=== PATIENT | female | born 1995 | race Hispanic/Latino ===

== ENCOUNTER 2018-05-11 15:44 | Emergency (ER) | payer BC ==
[2018-05-11] MEDS ORDERED: NA CHLORIDE 0.9% 1,000 ML ONE (16:03)
[2018-05-11] MEDS ORDERED: SUCRALFATE 1 GM TABLET ONE (16:12)
[2018-05-11 16:28] LABS: Absolute Lymphocytes (CBC) 0.5 K/uL (0.7-4.9); Absolute Monocytes 0.4 K/uL (0.1-1.3); Absolute Neutrophil 9.8 K/uL (1.8-8.0); Basophils % 0.2 % (0-1.3); Eosinophils % 0.2 % (0-4.4); Hematocrit 42.2 % (36.0-45.0); Lymphocytes % 4.8 % (15.3-44.8); MCH 30.6 pg (27.0-35.0); MCV 89.1 fL (80-100); MPV 10.5 fL (7.6-11.3); Monocytes % 3.8 % (3.3-12.3); RBC Red Blood Cell Count 4.73 M/uL (3.86-4.86)
[2018-05-11 16:46] LABS: ALT/SGPT 23 U/L (12-78); AST/SGOT 20 U/L (15-37); Alkaline Phosphatase 74 U/L (45-117); BUN Blood Urea Nitrogen 17 mg/dL (7-18); Bicarbonate 26 mmol/L (21-32); Bilirubin Direct 0.1 mg/dL (0-0.2); Bilirubin Total 0.4 mg/dL (0.2-1.0); Glucose Level 105 mg/dL (74-106); Lipase 90 U/L (73-393); Potassium 3.8 mmol/L (3.5-5.1); Protein, Total 8.6 g/dL (6.4-8.2); Sodium Level 138 mmol/L (136-145)
[2018-05-11] MEDS ORDERED: ONDANSETRON 4 MG/2 ML VIAL ONE (16:47)
[2018-05-11 17:28] LABS: Urine White Blood Cell Casts OK
[2018-05-11 17:29] LABS: Blood Morphology Comment NOT SEEN (NOT SEEN); Platelet Estimate ADEQ
--- NOTE | 2018-05-11 18:24 | ER ---
Nurse's Notes [facility] Name: Kathy Ortiz Age: 22 yrs Sex: Female : 1995 Arrival Date: 05/11/2018 Time: 15:47 Bed 16 Private MD: None, None Diagnosis: Vomiting, unspecified;Diarrhea, unspecified;Volume depletion, unspecified Presentation: 05/11 15:50 Presenting complaint: Patient states: nausea since yesterday. Upper abd pain, vomiting, aa5 and diarrhea since this morning. Transition of care: patient was not received from another setting of care. Onset of symptoms was May 11, 2018. Risk Assessment: Do you want to hurt yourself or someone else? Patient reports no desire to harm self or others. Initial Sepsis Screen: Does the patient meet any 2 criteria? No. Patient's initial sepsis screen is negative. Does the patient have a suspected source of infection? No. Patient's initial sepsis screen is negative. Care prior to arrival: None. 15:50 Method Of Arrival: Ambulatory aa5 15:50 Acuity: DEONDRE 3 aa5 Triage Assessment: 15:52 General: Appears in no apparent distress. uncomfortable, Behavior is calm, cooperative, hj appropriate for age. Pain: Complains of pain in abdomen. GI: Reports lower abdominal pain, upper abdominal pain. WINDER HAND: 15:52 LMP 04/13/2018 aa5 Historical: - Allergies: 15:52 No Known Allergies; aa5 - Home Meds: 15:52 albuterol sulfate 90 mcg/actuation Inhl HFAA 2 puffs PRN [Active]; aa5 - PMHx: 15:52 Asthma; aa5 - PSHx: 15:52 Cholecystectomy; aa5 - Immunization history:: Adult Immunizations up to date. - Social history:: Smoking status: Patient/guardian denies using tobacco. - Ebola Screening: : No symptoms or risks identified at this time. Screenin:52 Abuse screen: Denies threats or abuse. Denies injuries from another. Nutritional hj screening: No deficits noted. Tuberculosis screening: No symptoms or risk factors identified. Fall Risk None identified. Assessment: 15:52 GI: Bowel sounds present X 4 quads. Abd is soft. hj 15:52 General: Appears in no apparent distress. uncomfortable, Behavior is calm, cooperative, hj appropriate for age. Pain: Complains of pain in abdomen Pain currently is 6 out of 10 on a pain scale. Neuro: Level of Consciousness is awake, alert, obeys commands, Oriented to person, place, time, situation, Appropriate for age. Cardiovascular: Capillary refill < 3 seconds Patient's skin is warm and dry. Respiratory: Airway is patent Respiratory effort is even, unlabored, Respiratory pattern is regular, symmetrical. : No signs and/or symptoms were reported regarding the genitourinary system. EENT: No signs and/or symptoms were reported regarding the EENT system. Derm: No signs and/or symptoms reported regarding the dermatologic system. Musculoskeletal: No signs and/or symptoms reported regarding the musculoskeletal system. 16:30 Reassessment: Patient and/or family updated on plan of care and expected duration. Pain hj level reassessed. Patient is alert, oriented x 3, equal unlabored respirations, skin warm/dry/pink. awaiting results and POC; family in room;. 17:30 Reassessment: Patient and/or family updated on plan of care and expected duration. Pain hj level reassessed. Patient is alert, oriented x 3, equal unlabored respirations, skin warm/dry/pink. possible D/C;. 18:00 Reassessment: Patient and/or family updated on plan of care and expected duration. Pain hj level reassessed. Patient is alert, oriented x 3, equal unlabored respirations, skin warm/dry/pink. complaints of pain;. 18:36 Reassessment: Patient and/or family updated on plan of care and expected duration. Pain hj level reassessed. Patient is alert, oriented x 3, equal unlabored respirations, skin warm/dry/pink. medicated;. 18:36 Reassessment: for D/C; instructions given;. hj Vital Signs: 15:52 BP 122 / 79; Pulse 122; Resp 18 S; Temp 98.9(TE); Pulse Ox 97% on R/A; Weight 97.07 kg aa5 (R); Height 5 ft. 2 in. (157.48 cm) (R); Pain 7/10; 16:19 BP 128 / 71; Pulse 111; Resp 18; Pulse Ox 100% on R/A; mh5 18:23 BP 125 / 70; Pulse 94; Resp 18; Pulse Ox 97% on R/A; hj 15:52 Body Mass Index 39.14 (97.07 kg, 157.48 cm) aa5 ED Course: 15:47 Patient arrived in ED. mr 15:47 None, None is Private Physician. mr 15:51 Triage completed. aa5 15:52 Arm band placed on. aa5 15:52 Patient has correct armband on for positive identification. Placed in gown. Bed in low hj position. Call light in reach. Side rails up X 1. Adult w/ patient. 15:55 Mikaela Heck FNP-C is [facility]. snw 15:55 Russ Mai MD is Attending Physician. snw 15:57 Stewart Dhillon RN is Primary Nurse. hj 16:18 Initial lab(s) drawn, by me, sent to lab. Inserted saline lock: 22 gauge in left mh5 antecubital area, using aseptic technique. Blood collected. 16:45 Inserted saline lock: 22 gauge in right upper arm, using aseptic technique. hj 17:47 Urine Microscopic Only Sent. hj 18:57 No provider procedures requiring assistance completed. IV discontinued, intact, hj bleeding controlled, No redness/swelling at site. Pressure dressing applied. Administered Medications: 16:02 Drug: NS 0.9% 1000 ml Route: IV; Rate: 1 bolus; Site: left antecubital; hj 17:45 Follow up: IV Status: Completed infusion; IV Intake: 1000ml hj 16:02 Drug: CarafATE 1 grams Route: PO; hj 16:41 Follow up: Response: No adverse reaction hj 16:41 Drug: Zofran 4 mg Route: IVP; Site: right upper arm; hj 16:48 Follow up: Response: No adverse reaction; Nausea is decreased hj 18:23 Drug: TORadol 30 mg Route: IVP; Site: right upper arm; hj 18:28 Follow up: Response: No adverse reaction; Pain is decreased hj Intake: 17:45 IV: 1000ml; Total: 1000ml. hj Outcome: 18:24 Discharge ordered by . snw 18:57 Discharged to home ambulatory, with family. hj 18:57 Condition: stable 18:57 Discharge instructions given to patient, Instructed on discharge instructions, follow up and referral plans. medication usage, Demonstrated understanding of instructions, follow-up care, medications, Prescriptions given X 1. 18:58 Patient left the ED. hj Signatures: Mikaela Heck, AMY-C REELING OPERATOR-Csnw Jovita West mr Regina Lennon, RN RN aa5 Stewart Dhillon, JESICA RN Jovita Lora mh5
--- NOTE | 2018-05-11 18:25 | EDPHYS ---
Physician Documentation [facility] Name: Kathy Ortiz Age: 22 yrs Sex: Female : 1995 Arrival Date: 05/11/2018 Time: 15:47 Bed 16 Private MD: None, None ED Physician Russ Mai HPI: 05/11 16:15 This 22 yrs old Female presents to ER via Ambulatory with complaints of snw Abdominal Pain, Vomiting. 16:15 The patient presents with abdominal pain in the epigastric area, in the upper abdomen. snw Onset: The symptoms/episode began/occurred suddenly, this morning. The symptoms do not radiate. Associated signs and symptoms: Pertinent positives: nausea, vomiting, and diarrhea. The symptoms are described as crampy. Severity of pain: At its worst the pain was moderate. The patient has not experienced similar symptoms in the past. It is unknown whether or not the patient has recently seen a physician. 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 - Social history:: Smoking status: Patient/guardian denies using tobacco. - Ebola Screening: : No symptoms or risks identified at this time. ROS: 16:15 Constitutional: Negative for fever, chills, and weight loss, Eyes: Negative for injury, snw pain, redness, and discharge, ENT: Negative for injury, pain, and discharge, Neck: Negative for injury, pain, and swelling, Cardiovascular: Negative for chest pain, palpitations, and edema, Respiratory: Negative for shortness of breath, cough, wheezing, and pleuritic chest pain, Back: Negative for injury and pain, : Negative for injury, bleeding, discharge, and swelling, MS/Extremity: Negative for injury and deformity, Skin: Negative for injury, rash, and discoloration, Neuro: Negative for headache, weakness, numbness, tingling, and seizure. 16:15 Abdomen/GI: Positive for nausea, vomiting, and diarrhea. Exam: 16:14 Constitutional: This is a well developed, well nourished patient who is awake, alert, snw and in no acute distress. Head/Face: Normocephalic, atraumatic. Eyes: Pupils equal round and reactive to light, extra-ocular motions intact. Lids and lashes normal. Conjunctiva and sclera are non-icteric and not injected. Cornea within normal limits. Periorbital areas with no swelling, redness, or edema. ENT: Nares patent. No nasal discharge, no septal abnormalities noted. Tympanic membranes are normal and external auditory canals are clear. Oropharynx with no redness, swelling, or masses, exudates, or evidence of obstruction, uvula midline. Mucous membranes moist. Neck: Trachea midline, no thyromegaly or masses palpated, and no cervical lymphadenopathy. Supple, full range of motion without nuchal rigidity, or vertebral point tenderness. No Meningismus. Chest/axilla: Normal chest wall appearance and motion. Nontender with no deformity. No lesions are appreciated. 16:14 Respiratory: Lungs have equal breath sounds bilaterally, clear to auscultation and percussion. No rales, rhonchi or wheezes noted. No increased work of breathing, no retractions or nasal flaring. Back: No spinal tenderness. No costovertebral tenderness. Full range of motion. Skin: Warm, dry with normal turgor. Normal color with no rashes, no lesions, and no evidence of cellulitis. MS/ Extremity: Pulses equal, no cyanosis. Neurovascular intact. Full, normal range of motion. Neuro: Awake and alert, GCS 15, oriented to person, place, time, and situation. Cranial nerves II-XII grossly intact. Motor strength 5/5 in all extremities. Sensory grossly intact. Cerebellar exam normal. Normal gait. Psych: Awake, alert, with orientation to person, place and time. Behavior, mood, and affect are within normal limits. 16:14 Cardiovascular: Rate: tachycardic, Rhythm: regular, Heart sounds: normal. 16:14 Abdomen/GI: Inspection: abdomen appears normal, Bowel sounds: hyperactive, Palpation: mild abdominal tenderness, in the epigastric area. Vital Signs: 15:52 BP 122 / 79; Pulse 122; Resp 18 S; Temp 98.9(TE); Pulse Ox 97% on R/A; Weight 97.07 kg aa5 (R); Height 5 ft. 2 in. (157.48 cm) (R); Pain 7/10; 16:19 BP 128 / 71; Pulse 111; Resp 18; Pulse Ox 100% on R/A; mh5 18:23 BP 125 / 70; Pulse 94; Resp 18; Pulse Ox 97% on R/A; hj 15:52 Body Mass Index 39.14 (97.07 kg, 157.48 cm) aa5 MDM: 15:58 Patient medically screened. snw 18:41 Data reviewed: vital signs, nurses notes. Data interpreted: Pulse oximetry: on room air snw is 97 %. Interpretation: normal. Counseling: I had a detailed discussion with the patient and/or guardian regarding: the historical points, exam findings, and any diagnostic results supporting the discharge/admit diagnosis, lab results, the need for outpatient follow up, for definitive care, to return to the emergency department if symptoms worsen or persist or if there are any questions or concerns that arise at home. Special discussion: Based on the patient's Hx, exam, and Dx evaluation, there is no indication for emergent surgery or inpatient Tx. It is understood by the patient/guardian that if the Sx's persist or worsen they need to return immediately for re-evaluation. Based on the history and exam findings, there is no indication for further emergent testing or inpatient evaluation. I discussed with the patient/guardian the need to see the primary care provider for further evaluation of the symptoms. 05/11 15:56 Order name: Basic Metabolic Panel; Complete Time: 17:03 snw 05/11 15:56 Order name: CBC with Diff; Complete Time: 17:34 snw 05/11 15:56 Order name: Creatinine for Radiology; Complete Time: 17:03 snw 05/11 15:56 Order name: Hepatic Function; Complete Time: 17:03 snw 05/11 15:56 Order name: Lipase; Complete Time: 17:03 snw 05/11 15:56 Order name: Urine Microscopic Only; Complete Time: 18:41 snw 05/11 15:56 Order name: Test, Serum; Complete Time: 17:03 snw 05/11 17:28 Order name: CBC Smear Scan; Complete Time: 17:34 EDMS 05/11 18:04 Order name: Urine Dipstick--Ancillary (enter results) 05/11 18:04 Order name: Urine --Ancillary (enter results) 05/11 15:56 Order name: IV Saline Lock; Complete Time: 16:10 snw 05/11 15:56 Order name: Labs collected and sent; Complete Time: 16:10 snw 05/11 15:56 Order name: Urine Dipstick-Ancillary (obtain specimen); Complete Time: 17:47 snw Administered Medications: 16:02 Drug: NS 0.9% 1000 ml Route: IV; Rate: 1 bolus; Site: left antecubital; hj 17:45 Follow up: IV Status: Completed infusion; IV Intake: 1000ml hj 16:02 Drug: CarafATE 1 grams Route: PO; hj 16:41 Follow up: Response: No adverse reaction hj 16:41 Drug: Zofran 4 mg Route: IVP; Site: right upper arm; hj 16:48 Follow up: Response: No adverse reaction; Nausea is decreased hj 18:23 Drug: TORadol 30 mg Route: IVP; Site: right upper arm; hj 18:28 Follow up: Response: No adverse reaction; Pain is decreased Disposition: 05/11/18 18:24 Discharged to Home. Impression: Vomiting, unspecified, Diarrhea, unspecified, Volume depletion, unspecified. - Condition is Stable. - Discharge Instructions: Dehydration, Adult, Diarrhea, Adult, Clear Liquid Diet, Adult, Nausea and Vomiting, Adult, Hand Washing, Rehydration, Adult. - Prescriptions for Zofran 4 mg Oral Tablet - take 1 tablet by ORAL route every 8 hours As needed; 20 tablet. - Medication Reconciliation Form, Thank You Letter, Antibiotic Education, Prescription Opioid Use form. - Follow up: Private Physician; When: 2 - 3 days; Reason: Recheck today's complaints, Continuance of care, Re-evaluation by your physician. Follow up: Emergency Department; When: As needed; Reason: Worsening of condition. Addendum: 05/15/2018 07:12 Co-signature as Attending Physician, Russ Mai MD I agree with the assessment and k dr plan of care. Signatures: Dispatcher [employer] [facility] Russ Mai MD MD kdr Therrien, Shelly, PHARMACOGNOSIST-C PHARMACOGNOSIST-Csnw Regina Lennon RN RN aa5 Stewart Dhillon RN RN hj Corrections: (The following items were deleted from the chart) 05/11 18:58 18:24 05/11/2018 18:24 Discharged to Home. Impression: Vomiting, unspecified; Diarrhea, hj unspecified; Volume depletion, unspecified. Condition is Stable. Forms are Medication Reconciliation Form, Thank You Letter, Antibiotic Education, Prescription Opioid Use. Follow up: Private Physician; When: 2 - 3 days; Reason: Recheck today's complaints, Continuance of care, Re-evaluation by your physician. Follow up: Emergency Department; When: As needed; Reason: Worsening of condition. snw
[2018-05-11] MEDS ORDERED: KETOROLAC 30 MG/ML INJ ONE (18:31)
[2018-05-11 18:35] LABS: Urine Bacteria 20-50 /HPF (<20); Urine Culture Reflex Order NOT NEEDED; Urine RBC <5 /HPF (NONE SEEN)
[2018-05-11 19:08] VITALS: TEMP 98.9
[2018-05-11 19:11] VITALS: BP 125/70; O2SAT 97
[2018-05-11 20:39] LABS: Urine Blood NEGATIVE (NEG); Urine Glucose NEGATIVE (NEG); Urine Protein NEGATIVE (NEG)
== END 2018-05-11 18:58 | disposition home or self-care (01) ==
LOC: ER 15:44
DX: E86.9 Volume depletion, unspecified (principal); R19.7 Diarrhea, unspecified; J45.909 Unspecified asthma, uncomplicated
CPT/HCPCS: 36415; 80048; 80076; 81003; 81015; 81025; 83690; 84703; 85025; 96361; 96374; 96375; 99284; J2405; J7030

== ENCOUNTER 2018-05-13 12:35 | Emergency (ER) | payer BC ==
[2018-05-13 15:07] LABS: Absolute Lymphocytes (CBC) 1.6 K/uL (0.7-4.9); Absolute Monocytes 0.5 K/uL (0.1-1.3); Absolute Neutrophil 2.9 K/uL (1.8-8.0); Basophils % 0.4 % (0-1.3); Eosinophils % 0.7 % (0-4.4); Hematocrit 39.2 % (36.0-45.0); Lymphocytes % 31.3 % (15.3-44.8); MCH 30.7 pg (27.0-35.0); MCV 88.4 fL (80-100); MPV 10.3 fL (7.6-11.3); Monocytes % 10.3 % (3.3-12.3); RBC Red Blood Cell Count 4.44 M/uL (3.86-4.86)
[2018-05-13 15:26] LABS: Urine Bacteria 20-50 /HPF (<20); Urine Culture Reflex Order REFLEXED; Urine RBC NONE SEEN /HPF (NONE SEEN)
[2018-05-13 15:27] LABS: ALT/SGPT 114 U/L (12-78); AST/SGOT 83 U/L (15-37); Albumin 3.4 g/dL (3.4-5.0); Alkaline Phosphatase 154 U/L (45-117); BUN Blood Urea Nitrogen 15 mg/dL (7-18); Bicarbonate 28 mmol/L (21-32); Bilirubin Direct 0.1 mg/dL (0-0.2); Bilirubin Total 0.3 mg/dL (0.2-1.0); Glucose Level 86 mg/dL (74-106); Lipase 94 U/L (73-393); Potassium 3.4 mmol/L (3.5-5.1); Protein, Total 7.6 g/dL (6.4-8.2); Sodium Level 142 mmol/L (136-145)
[2018-05-13 15:30] LABS: Urine Blood NEGATIVE (NEG); Urine Glucose NEGATIVE (NEG); Urine Protein NEGATIVE (NEG); Urine pH 5.5 (5.0-7.0)
--- NOTE | 2018-05-13 15:36 | RAD REPORT ---
EXAM DESCRIPTION: CT - Stone Protocol - 05/13/2018 3:24 pm CLINICAL HISTORY: Right upper quadrant pain, history of prior cholecystectomy COMPARISON: None. TECHNIQUE: Axial 5 mm thick images were obtained without oral or IV contrast. The [id number] span s the entirety of the system including uppermost abdomen and lung bases. All CT scans are performed using dose optimization technique as appropriate and may include automated exposure control or mA/KV adjustment according to patient size. FINDINGS: No hydronephrosis is present and no obstructing ureteral calculi. No suspicious renal mass es. Isodense masses and pyelonephritis are not excluded on a stone protocol CT scan. No abnormality s een in a partially filled urinary bladder. Uterus and ovaries show no suspicious findings. Imaged portions of the liver, spleen and pancreas show no suspicious findings on non-contrast imaging . Cholecystectomy clips are present. No biliary tree dilatation. No significant adrenal finding. No dilated bowel loops or bowel wall thickening. Moderate stool volume throughout the colon. No acute appendix finding. There are multiple small mesenteric lymph nodes present. No mass or bulky lymphadenopathy. Patient has a very small umbilical hernia of no significance. No fr ee air, free fluid or inflammatory stranding. No significant bony abnormality. IMPRESSION: Mesenteric adenitis pattern. No acute GI process otherwise noted. Cholecystectomy with no biliary tree or pancreatic acute finding. No acute finding. Full assessment is limited in the absence of contrast.
[2018-05-13] MEDS ORDERED: KETOROLAC 30 MG/ML INJ ONE (15:37)
[2018-05-13] MEDS ORDERED: CEFTRIAXONE/SWI 1gm 1 GM/10 ML SYR ONE (16:36)
--- NOTE | 2018-05-13 16:51 | ER ---
Nurse's Notes [facility] Name: Kathy Ortiz Age: 22 yrs Sex: Female : 1995 Arrival Date: 05/13/2018 Time: 12:37 Bed 25 Private MD: None, None Diagnosis: Unspecified abdominal pain;Urinary tract infection, site not specified Presentation: 05/13 12:55 Presenting complaint: Patient states: mid upper and right sided abdominal pain started dm5 . Seen here on Saturday and had blood work and urine done. Pt also received fluids due to dehydration. Pt also reports n/v/d No vomiting today. Diarrhear x 1. 12:55 Acuity: DEONDRE 3 dm5 17:30 Transition of care: patient was not received from another setting of care. Onset of aj1 symptoms was May 10, 2018. Risk Assessment: Do you want to hurt yourself or someone else? Patient reports no desire to harm self or others. Initial Sepsis Screen: Does the patient meet any 2 criteria? No. Patient's initial sepsis screen is negative. Does the patient have a suspected source of infection? Yes: Acute abdominal pain. Care prior to arrival: None. 17:30 Method Of Arrival: Ambulatory aj1 Triage Assessment: 12:56 General: Appears in no apparent distress. Behavior is calm, cooperative. Pain: dm5 Complains of pain in epigastric area and right upper quadrant Pain currently is 6 out of 10 on a pain scale. 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 - Social history:: Smoking status: unknown. - Ebola Screening: : No symptoms or risks identified at this time. Screenin:08 Abuse screen: Denies threats or abuse. Denies injuries from another. Nutritional aj1 screening: No deficits noted. Tuberculosis screening: No symptoms or risk factors identified. 17:31 Fall Risk None identified. aj1 Assessment: 14:06 General: Appears in no apparent distress. comfortable, Behavior is calm, cooperative, aj1 appropriate for age. Pain: Complains of pain in right upper quadrant and epigastric area Pain does not radiate. Pain currently is 6 out of 10 on a pain scale. Quality of pain is described as aching, Is continuous, Aggravated by eating. Neuro: Level of Consciousness is awake, alert, obeys commands, Speech is normal. Cardiovascular: Patient's skin is warm and dry. Respiratory: Airway is patent Respiratory effort is even, unlabored, Respiratory pattern is regular, symmetrical. GI: Abdomen is non-distended, Bowel sounds present X 4 quads. Abd is soft X 4 quads Abdomen is tender to palpation in right upper quadrant Reports diarrhea, nausea, vomiting. : No signs and/or symptoms were reported regarding the genitourinary system. EENT: No signs and/or symptoms were reported regarding the EENT system. Derm: No signs and/or symptoms reported regarding the dermatologic system. Skin is pink, warm \T\ dry. normal. Musculoskeletal: No signs and/or symptoms reported regarding the musculoskeletal system. Circulation, motion, and sensation intact. 15:05 Reassessment: Patient appears in no apparent distress at this time. No changes from aj1 previously documented assessment. Patient and/or family updated on plan of care and expected duration. Pain level reassessed. Patient is alert, oriented x 3, equal unlabored respirations, skin warm/dry/pink. 16:09 Reassessment: Patient appears in no apparent distress at this time. No changes from aj1 previously documented assessment. Patient and/or family updated on plan of care and expected duration. Pain level reassessed. Patient is alert, oriented x 3, equal unlabored respirations, skin warm/dry/pink. 17:15 Reassessment: Patient appears in no apparent distress at this time. No changes from aj1 previously documented assessment. Patient and/or family updated on plan of care and expected duration. Pain level reassessed. Patient is alert, oriented x 3, equal unlabored respirations, skin warm/dry/pink. Vital Signs: 12:56 BP 125 / 69; Pulse 70; Resp 16; Temp 97.4; Pulse Ox 99% on R/A; Weight 97.07 kg; Height dm5 5 ft. 2 in. (157.48 cm); Pain 6/10; 14:06 BP 114 / 71; Pulse 66; Resp 18; Pulse Ox 96% on R/A; aj1 16:09 BP 124 / 63; Pulse 54; Resp 20; Pulse Ox 96% on R/A; aj1 17:15 BP 125 / 75; Pulse 62; Resp 18; Pulse Ox 99% ; aj1 12:56 Body Mass Index 39.14 (97.07 kg, 157.48 cm) dm5 ED Course: 12:37 Patient arrived in ED. sb2 12:38 None, None is Private Physician. sb2 12:56 Triage completed. dm5 12:56 Arm band placed on right wrist. Patient placed in waiting room. dm5 13:46 Whit Elliott, RN is Primary Nurse. aj1 13:50 Urine collected: clean catch specimen, clear, florin colored. jp3 13:55 Enrique Martinez NP is PHCP. pm1 13:55 Vargas Almendarez MD is Attending Physician. pm1 14:08 Patient has correct armband on for positive identification. Bed in low position. Call aj1 light in reach. Side rails up X 1. 14:08 No provider procedures requiring assistance completed. aj1 14:14 Warm blanket given. jp3 14:45 Initial lab(s) drawn, by il, sent to lab. Inserted saline lock: 22 gauge in left jp3 forearm, using aseptic technique. Blood collected. 14:51 Urine Dipstick--Ancillary (enter results) Sent. jp3 14:51 Basic Metabolic Panel Sent. jp3 14:51 CBC with Diff Sent. jp3 14:51 Hepatic Function Sent. jp3 14:51 Lipase Sent. jp3 14:51 Urine Microscopic Only Sent. jp3 15:26 CT Stone Protocol In Process Unspecified. EDMS 17:30 IV discontinued, intact, bleeding controlled, No redness/swelling at site. Pressure aj1 dressing applied. Administered Medications: 15:35 Drug: TORadol 30 mg Route: IVP; Site: left antecubital; aj1 16:30 Follow up: Response: No adverse reaction aj1 16:35 Drug: Rocephin 1 grams Route: IV; Rate: calculated rate; Site: left antecubital; aj1 16:38 Follow up: IV Status: Completed infusion aj1 Outcome: 16:51 Discharge ordered by MD. pm1 17:31 Discharged to home ambulatory. aj1 17:31 Condition: good 17:31 Discharge instructions given to patient, Instructed on discharge instructions, follow up and referral plans. no drinking with medication, no driving heavy equipment, medication usage, Demonstrated understanding of instructions, follow-up care, medications, Prescriptions given X 2. 17:32 Patient left the ED. aj1 Signatures: Dispatcher [employer] EDMS Whit Elliott RN RN aj1 Jennyfer Bryant RN RN dm5 Enrique Martinez NP BILL OF LADING CLERK pm1 Viky Valdez2 Darshan Auguste jp3
--- NOTE | 2018-05-13 16:51 | EDPHYS ---
Physician Documentation [facility] Name: Kathy Ortiz Age: 22 yrs Sex: Female : 1995 Arrival Date: 05/13/2018 Time: 12:37 Bed 25 Private MD: None, None ED Physician Vargas Almendarez HPI: 05/13 16:00 This 22 yrs old Female presents to ER via Ambulatory with complaints of pm1 Abdominal Pain, Nausea. 16:00 The patient presents with abdominal pain in the epigastric area, right flank. Onset: pm1 The symptoms/episode began/occurred 3 day(s) ago. The symptoms do not radiate. Associated signs and symptoms: Pertinent positives: nausea, Pertinent negatives: chest pain, fever, shortness of breath. The symptoms are described as sharp. Modifying factors: The symptoms are alleviated by nothing, the symptoms are aggravated by food. Severity of pain: in the emergency department the pain is unchanged. The patient has been recently seen at the [facility] Emergency Department, this week, for similar complaints labs were performed, was given a prescription for an antiemetic. 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 - Social history:: Smoking status: unknown. - Ebola Screening: : No symptoms or risks identified at this time. ROS: 16:00 Constitutional: Negative for fever, chills, and weight loss, Eyes: Negative for injury, pm1 pain, redness, and discharge, ENT: Negative for injury, pain, and discharge, Neck: Negative for injury, pain, and swelling, Cardiovascular: Negative for chest pain, palpitations, and edema, Respiratory: Negative for shortness of breath, cough, wheezing, and pleuritic chest pain. 16:00 : Negative for injury, bleeding, discharge, and swelling, MS/Extremity: Negative for injury and deformity, Skin: Negative for injury, rash, and discoloration, Neuro: Negative for headache, weakness, numbness, tingling, and seizure. 16:00 Abdomen/GI: Positive for abdominal pain, nausea, Negative for vomiting, diarrhea. 16:00 Back: Positive for flank pain, on the right. pm1 Exam: 16:00 Constitutional: This is a well developed, well nourished patient who is awake, alert, pm1 and in no acute distress. Head/Face: Normocephalic, atraumatic. Eyes: Pupils equal round and reactive to light, extra-ocular motions intact. Lids and lashes normal. Conjunctiva and sclera are non-icteric and not injected. Cornea within normal limits. Periorbital areas with no swelling, redness, or edema. ENT: Nares patent. No nasal discharge, no septal abnormalities noted. Tympanic membranes are normal and external auditory canals are clear. Oropharynx with no redness, swelling, or masses, exudates, or evidence of obstruction, uvula midline. Mucous membranes moist. Neck: Trachea midline, no thyromegaly or masses palpated, and no cervical lymphadenopathy. Supple, full range of motion without nuchal rigidity, or vertebral point tenderness. No Meningismus. Chest/axilla: Normal chest wall appearance and motion. Nontender with no deformity. No lesions are appreciated. Cardiovascular: Regular rate and rhythm with a normal S1 and S2. No gallops, murmurs, or rubs. Normal PMI, no JVD. No pulse deficits. Respiratory: Lungs have equal breath sounds bilaterally, clear to auscultation and percussion. No rales, rhonchi or wheezes noted. No increased work of breathing, no retractions or nasal flaring. 16:00 Skin: Warm, dry with normal turgor. Normal color with no rashes, no lesions, and no evidence of cellulitis. MS/ Extremity: Pulses equal, no cyanosis. Neurovascular intact. Full, normal range of motion. 16:00 Abdomen/GI: Inspection: abdomen appears normal, Bowel sounds: normal, Palpation: soft, mild abdominal tenderness, in the epigastric area. 16:00 Back: pain, that is mild, of the right mid back. 16:00 Neuro: Orientation: is normal, Motor: is normal, moves all fours, Sensation: is normal, no obvious gross deficits. Vital Signs: 12:56 BP 125 / 69; Pulse 70; Resp 16; Temp 97.4; Pulse Ox 99% on R/A; Weight 97.07 kg; Height dm5 5 ft. 2 in. (157.48 cm); Pain 6/10; 14:06 BP 114 / 71; Pulse 66; Resp 18; Pulse Ox 96% on R/A; aj1 16:09 BP 124 / 63; Pulse 54; Resp 20; Pulse Ox 96% on R/A; aj1 17:15 BP 125 / 75; Pulse 62; Resp 18; Pulse Ox 99% ; aj1 12:56 Body Mass Index 39.14 (97.07 kg, 157.48 cm) dm5 MDM: 13:55 Patient medically screened. pm1 16:50 Data reviewed: vital signs. Data interpreted: Pulse oximetry: on room air is 96 %. pm1 Interpretation: normal. Counseling: I had a detailed discussion with the patient and/or guardian regarding: the historical points, exam findings, and any diagnostic results supporting the discharge/admit diagnosis, lab results, radiology results, the need for outpatient follow up, to return to the emergency department if symptoms worsen or persist or if there are any questions or concerns that arise at home. 05/13 13:58 Order name: Basic Metabolic Panel; Complete Time: 16:11 pm05/13 13:58 Order name: CBC with Diff; Complete Time: 16:11 pm05/13 13:58 Order name: Hepatic Function; Complete Time: 16:11 pm05/13 13:58 Order name: Lipase; Complete Time: 16:11 pm05/13 13:58 Order name: Urine Microscopic Only; Complete Time: 16:11 pm05/13 14:10 Order name: Urine Dipstick--Ancillary (enter results); Complete Time: 16:11 05/13 13:58 Order name: Urine Test (obtain specimen); Complete Time: 14:08 pm05/13 13:58 Order name: IV Saline Lock; Complete Time: 14:51 pm05/13 13:58 Order name: Labs collected and sent; Complete Time: 14:51 pm05/13 13:58 Order name: Urine Dipstick-Ancillary (obtain specimen); Complete Time: 14:08 pm05/13 15:01 Order name: CT Stone Protocol; Complete Time: 16:11 pm05/13 15:32 Order name: Urine Culture EDMS Administered Medications: 15:35 Drug: TORadol 30 mg Route: IVP; Site: left antecubital; aj1 16:30 Follow up: Response: No adverse reaction aj1 16:35 Drug: Rocephin 1 grams Route: IV; Rate: calculated rate; Site: left antecubital; aj1 16:38 Follow up: IV Status: Completed infusion aj1 Disposition: 21:20 Co-signature as Attending Physician, Vargas Almendarez MD. nita Disposition: 05/13/18 16:51 Discharged to Home. Impression: Unspecified abdominal pain, Urinary tract infection, site not specified. - Condition is Stable. - Discharge Instructions: Abdominal Pain, Adult, Urinary Tract Infection, Adult. - Prescriptions for Bactrim DS 800- 160 mg Oral Tablet - take 1 tablet by ORAL route every 12 hours for 10 days; 20 tablet. Tylenol- Codeine #3 300-30 mg Oral Tablet - take 2 tablets by ORAL route every 6 hours As needed; 20 tablet. - Work release form, Medication Reconciliation Form, Thank You Letter, Antibiotic Education, Prescription Opioid Use form. - Follow up: Emergency Department; When: As needed; Reason: Worsening of condition. Follow up: Private Physician; When: 2 - 3 days; Reason: Recheck today's complaints, Continuance of care, Re-evaluation by your physician. - Problem is new. - Symptoms have improved. Signatures: Dispatcher [employer] EDMS Whit Elliott RN RN aj1 Jennyfer Bryant RN RN dm5 Enrique Martinez, [employer] SUPERVISOR [employer]PER[employer] SUPERVISOR pm1 Vargas Almendarez MD MD Corrections: (The following items were deleted from the chart) 17:32 16:51 05/13/2018 16:51 Discharged to Home. Impression: Unspecified abdominal pain; aj1 Urinary tract infection, site not specified. Condition is Stable. Forms are Medication Reconciliation Form, Thank You Letter, Antibiotic Education, Prescription Opioid Use. Follow up: Emergency Department; When: As needed; Reason: Worsening of condition. Follow up: Private Physician; When: 2 - 3 days; Reason: Recheck today's complaints, Continuance of care, Re-evaluation by your physician. Problem is new. Symptoms have improved. pm1 18:16 16:00 Back: Negative for injury and pain, : Negative for injury, bleeding, discharge, pm1 and swelling, MS/Extremity: Negative for injury and deformity, Skin: Negative for injury, rash, and discoloration, Neuro: Negative for headache, weakness, numbness, tingling, and seizure, pm1
[2018-05-13 17:44] VITALS: TEMP 97.4
[2018-05-13 17:48] VITALS: BP 125/75; O2SAT 99
== END 2018-05-13 17:32 | disposition home or self-care (01) ==
LOC: ER 12:35
DX: N39.0 Urinary tract infection, site not specified (principal); J45.909 Unspecified asthma, uncomplicated
CPT/HCPCS: 36415; 74176; 76377; 80048; 80076; 81003; 81015; 83690; 85025; 87086; 87088; 96374; 96375; 99284; J0696

== ENCOUNTER 2019-08-09 12:37 | Emergency (ER) | payer BC ==
--- OUTSIDE RECORDS SUMMARY | 2019-08-09 12:38 | XMS REPORT ---
:1995 [facility] [address] Gutierrez [address] [place] [id number] Care Team Providers Name Role Phone Unavailable Unavailable Unavailable Problems This patient has no known problems. Allergies, Adverse Reactions, Alerts This patient has no known allergies or adverse reactions. Medications This patient has no known medications.
--- NOTE | 2019-08-09 13:33 | ER ---
Nurse's Notes [facility] Name: Kathy Ortiz Age: 24 yrs Sex: Female : 1995 Arrival Date: 08/09/2019 Time: 12:39 Bed 26 Private MD: Diagnosis: Rash and other nonspecific skin eruption;Local infection of the skin and subcutaneous tissue, unspecified Presentation: 08/09 12:42 Presenting complaint: Patient states: "Saturday I woke up with a rash on my arms and its aj1 been itchy. I've been taking Benadryl but it doesn't do anything". Transition of care: patient was not received from another setting of care. Onset: The symptoms/episode began/occurred 3 day(s) ago. Anaphylaxis evaluation, the patient reports or I have noted the following symptoms which indicate a significant risk of anaphylaxis:. Onset of symptoms was 2018. Risk Assessment: Do you want to hurt yourself or someone else? Patient reports no desire to harm self or others. Initial Sepsis Screen: Does the patient meet any 2 criteria? No. Patient's initial sepsis screen is negative. Does the patient have a suspected source of infection? No. Patient's initial sepsis screen is negative. Care prior to arrival: None. 12:42 Method Of Arrival: Ambulatory aj 12:42 Acuity: DEONDRE 4 aj1 Triage Assessment: 12:43 General: Appears in no apparent distress. uncomfortable, Behavior is calm, cooperative, aj1 appropriate for age. Pain: Denies pain. Neuro: Level of Consciousness is awake, alert, obeys commands. Cardiovascular: Patient's skin is warm and dry. 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 - Social history:: Smoking status: Patient/guardian denies using tobacco. - Ebola Screening: : Patient denies travel to an Ebola-affected area in the 21 days before illness onset. Screenin:52 Abuse screen: Denies threats or abuse. Denies injuries from another. Nutritional mg2 screening: No deficits noted. Tuberculosis screening: No symptoms or risk factors identified. Fall Risk None identified. Assessment: 12:50 General: Appears in no apparent distress. comfortable, Behavior is calm, cooperative. mg2 Pain: Denies pain. Neuro: Level of Consciousness is awake, alert, obeys commands, Oriented to person, place, time, situation. Cardiovascular: Patient's skin is warm and dry. Respiratory: Airway is patent Respiratory effort is even, unlabored, Breath sounds are clear bilaterally. in mediastinum, right upper lobe, left upper lobe, right middle lobe, left lower lobe and right lower lobe. GI: No signs and/or symptoms were reported involving the gastrointestinal system. : No signs and/or symptoms were reported regarding the genitourinary system. EENT: No signs and/or symptoms were reported regarding the EENT system. Derm: Skin is pink, warm \\T\\ dry. Rash noted that is red, raised, on right arm and left arm. Musculoskeletal: Circulation, motion, and sensation intact. Capillary refill < 3 seconds. Vital Signs: 12:43 BP 146 / 100; Pulse 112; Resp 18; Temp 98.1; Pulse Ox 98% on R/A; Weight 99.79 kg (R); aj1 Height 5 ft. 2 in. (157.48 cm) (M); Pain 0/10; 13:41 BP 130 / 78; Pulse 98; Resp 18; Temp 98; Pulse Ox 100% on R/A; mg2 12:43 Body Mass Index 40.24 (99.79 kg, 157.48 cm) aj1 ED Course: 12:39 Patient arrived in ED. as 12:42 Triage completed. aj1 12:43 Arm band placed on Patient placed in an exam room. aj1 12:48 Brenden Kimbrough RN is Primary Nurse. mg2 12:50 Eleanor De Souza FNP-C is PHCP. kb 12:50 Deonte Junior MD is Attending Physician. kb 12:53 Patient has correct armband on for positive identification. mg2 12:53 No provider procedures requiring assistance completed. Patient did not have IV access mg2 during this emergency room visit. Administered Medications: No medications were administered Outcome: 13:33 Discharge ordered by . kb 13:42 Discharged to home ambulatory. mg2 13:42 Condition: stable 13:42 Discharge instructions given to patient, Instructed on discharge instructions, follow up and referral plans. medication usage, Demonstrated understanding of instructions, follow-up care, medications, Prescriptions given X 3. 13:43 Patient left the ED. mg2 Signatures: Eleanor De Souza, RHIANONNC DRAMATIC TEACHER-Whit Leon, RN RN aj1 Miriam Duran as Brenden Kimbrough, RN RN mg2
--- NOTE | 2019-08-09 13:34 | EDPHYS ---
Physician Documentation [facility] Name: Kathy Ortiz Age: 24 yrs Sex: Female : 1995 Arrival Date: 08/09/2019 Time: 12:39 Bed 26 Private MD: ED Physician Deonte Junior HPI: 08/09 13:26 This 24 yrs old Female presents to ER via Ambulatory with complaints of Rash, kb Itching. 13:26 The patient's rash thought to be caused by an unknown cause. The rash is located on the kb left arm and right arm. The rash can be described as erythematous, macular. Onset: The symptoms/episode began/occurred 3 day(s) ago. Associated signs and symptoms: Pertinent positives: itching, Pertinent negatives: fever, Pain. Severity of symptoms: At their worst the symptoms were moderate in the emergency department the symptoms are unchanged. Treatment given at home: Benadryl. The patient has not experienced similar symptoms in the past. The patient has not recently seen a physician. Pt reports she woke up Saturday with a rash to her arms. Reports mild itching, but no other symptoms. . 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 - Social history:: Smoking status: Patient/guardian denies using tobacco. - Ebola Screening: : Patient denies travel to an Ebola-affected area in the 21 days before illness onset. ROS: 13:26 Constitutional: Negative for fever, chills, and weight loss, Cardiovascular: Negative kb for chest pain, palpitations, and edema, Respiratory: Negative for shortness of breath, cough, wheezing, and pleuritic chest pain, Abdomen/GI: Negative for abdominal pain, nausea, vomiting, diarrhea, and constipation, Back: Negative for injury and pain, MS/Extremity: Negative for injury and deformity, Neuro: Negative for headache, weakness, numbness, tingling, and seizure. 13:26 Skin: Positive for erythema, rash, of the left arm and right arm. Exam: 13:24 Constitutional: This is a well developed, well nourished patient who is awake, alert, kb and in no acute distress. Head/Face: Normocephalic, atraumatic. Neck: Trachea midline, no thyromegaly or masses palpated, and no cervical lymphadenopathy. Supple, full range of motion without nuchal rigidity, or vertebral point tenderness. No Meningismus. Chest/axilla: Normal chest wall appearance and motion. Nontender with no deformity. No lesions are appreciated. Cardiovascular: Regular rate and rhythm with a normal S1 and S2. No gallops, murmurs, or rubs. Normal PMI, no JVD. No pulse deficits. Respiratory: Lungs have equal breath sounds bilaterally, clear to auscultation and percussion. No rales, rhonchi or wheezes noted. No increased work of breathing, no retractions or nasal flaring. Abdomen/GI: Soft, non-tender, with normal bowel sounds. No distension or tympany. No guarding or rebound. No evidence of tenderness throughout. MS/ Extremity: Pulses equal, no cyanosis. Neurovascular intact. Full, normal range of motion. Neuro: Awake and alert, GCS 15, oriented to person, place, time, and situation. Cranial nerves II-XII grossly intact. Motor strength 5/5 in all extremities. Sensory grossly intact. Cerebellar exam normal. Normal gait. 13:24 Skin: on the right arm and left arm. Vital Signs: 12:43 BP 146 / 100; Pulse 112; Resp 18; Temp 98.1; Pulse Ox 98% on R/A; Weight 99.79 kg (R); aj1 Height 5 ft. 2 in. (157.48 cm) (M); Pain 0/10; 13:41 BP 130 / 78; Pulse 98; Resp 18; Temp 98; Pulse Ox 100% on R/A; mg2 12:43 Body Mass Index 40.24 (99.79 kg, 157.48 cm) aj1 MDM: 12:50 Patient medically screened. kb 13:24 Data reviewed: vital signs, nurses notes. Data interpreted: Pulse oximetry: on room air kb is 98 %. Interpretation: normal. 13:26 Counseling: I had a detailed discussion with the patient and/or guardian regarding: the kb historical points, exam findings, and any diagnostic results supporting the discharge/admit diagnosis, the need for outpatient follow up, a family practitioner, to return to the emergency department if symptoms worsen or persist or if there are any questions or concerns that arise at home. 13:30 ED course: Rash appears to be more of bites, but pt denies any known insect bite, bed kb bugs, etc. Administered Medications: No medications were administered Disposition: 17:46 Co-signature as Attending Physician, Deonte Junior MD Did not see or evaluate the ps1 patient. Signing the chart for administrative purposes. Not an endorsement of care provided. . Disposition: 08/09/19 13:33 Discharged to Home. Impression: Rash and other nonspecific skin eruption, Local infection of the skin and subcutaneous tissue, unspecified. - Condition is Stable. - Discharge Instructions: Insect Bite, [id number], Rash, [id number], Allergies, [id number]. - Prescriptions for Keflex 500 mg Oral Capsule - take 1 capsule by ORAL route every 8 hours for 10 days; 30 capsule. Pepcid 20 mg Oral Tablet - take 1 tablet by ORAL route every 12 hours for 5 days; 10 tablet. Prednisone 20 mg Oral Tablet - take 1 tablet by ORAL route once daily for 5 days; 5 tablet. - Medication Reconciliation Form, Thank You Letter, Antibiotic Education, Prescription Opioid Use form. - Follow up: Emergency Department; When: As needed; Reason: Worsening of condition. Follow up: Private Physician; When: 2 - 3 days; Reason: Recheck today's complaints, Continuance of care, Re-evaluation by your physician. Signatures: Eleanor De Souza, EDITOR-C EDITOR-Ckb Whit Elliott RN RN aj1 Deonte Junior MD MD ps1 Brenden Kimbrough RN RN mg2 Corrections: (The following items were deleted from the chart) 13:43 13:33 08/09/2019 13:33 Discharged to Home. Impression: Rash and other nonspecific skin mg2 eruption; Local infection of the skin and subcutaneous tissue, unspecified. Condition is Stable. Forms are Medication Reconciliation Form, Thank You Letter, Antibiotic Education, Prescription Opioid Use. Follow up: Emergency Department; When: As needed; Reason: Worsening of condition. Follow up: Private Physician; When: 2 - 3 days; Reason: Recheck today's complaints, Continuance of care, Re-evaluation by your physician. kb
[2019-08-09 13:49] VITALS: BP 130/78; TEMP 98; O2SAT 100
== END 2019-08-09 13:43 | disposition home or self-care (01) ==
LOC: ER 12:37
DX: R21 Rash and other nonspecific skin eruption (principal); L08.9 Local infection of the skin and subcutaneous tissue, unspecified
CPT/HCPCS: 99282